=== PATIENT | male | born 1985 | race African-American/Black ===

== ENCOUNTER 2017-08-16 03:09 | Emergency (ER) | payer OTHER ==
[2017-08-16] MEDS ORDERED: Sodium Chloride 0.9% 1,000 ML ONE (03:42)
[2017-08-16] MEDS ORDERED: Lorazepam 2 MG/ML VIAL ONE (03:56)
[2017-08-16 04:08] LABS: Band 2 % (5-11); Eosinophils 9 % (0-10); Hemoglobin 14.5 g/dL (14.0-18.0); Lymphocytes 33 % (21-51); MDiff Complete? YES; Mean Corpuscular HGB CONC 30.2 g/dL (32.0-36.0); Mean Corpuscular Hemoglobin 27.1 pg (27.0-31.0); Mean Corpuscular Volume 89.9 fl (80.0-94.0); Mean Platelet Volume 5.9 fL (7.4-10.4); Monocytes 9 % (0-10); Neutrophil 46 % (42-75); PLT Morphology Comment Appears Adequate; Platelet Count 330 thou/uL (130-400); RBC Distribution Width 15.4 % (11.5-14.5); RBC Morphology Normal; Reactive Lymphocytes 1 % (0-10); Red Blood Cell (RBC) Count 5.33 mill/uL (4.70-6.10); White Blood Cell (WBC) Count 8.7 thou/uL (4.8-10.8)
[2017-08-16 04:09] LABS: Amphetamine Not Detected (NotDetected); Barbiturates Screen Not Detected (NotDetected); Benzodiazepine Screen Not Detected (NotDetected); Bilirubin Negative (Negative); Blood, Urine Negative (Negative); Clarity Clear (Clear); Cocaine Metabolite Screen Not Detected (NotDetected); Glucose, Urine (Dipstick) Negative (Negative); Leukocyte Negative (Negative); Medtox Control Line Valid? VALID (VALID); Methadone Not Detected (NotDetected); Methamphetamine Not Detected (NotDetected); Nitrite Negative (Negative); Opiate Screen Not Detected (NotDetected); Oxycodone Screen Not Detected (NotDetected); Phencyclidine (PCP) Not Detected (NotDetected); Protein, Urine (Dipstick) Trace mg/dL (Neg-Trace); Specific Gravity, Urine 1.025 (1.005-1.030); THC/Cannabinoid Screen Detected (NotDetected); Tricyclic Screen Not Detected (NotDetected); Urobilinogen 0.2 mg/dL (0.2-1.0)
[2017-08-16 04:22] LABS: ALT (SGPT) 47 U/L (8-55); AST (SGOT) 39 U/L (5-34); Acetaminophen Less than 6.0 mcg/mL (10.0-30.0); Albumin 3.8 g/dL (3.5-5.0); Alcohol Less than 10 mg/dL (Less than 10); Alkaline Phosphatase 39 U/L (40-150); Anion Gap 16 mmol/L (10-20); BUN (Urea Nitrogen) 14 mg/dL (8.9-20.6); Bilirubin, Total 0.8 mg/dL (0.2-1.2); Calc. Creatinine Clearance 0 mL/min (70-130); Calcium 8.7 mg/dL (7.8-10.44); Carbon Dioxide 25 mmol/L (22-29); Chloride 100 mmol/L (98-107); Estimated GFR-MDRD 74; Glucose 138 mg/dL (70-105); Potassium 3.3 mmol/L (3.5-5.1); Protein, Total 6.8 g/dL (6.0-8.3); Salicylate Less than 8.0 mg/dL (15.0-30.0); Sodium 138 mmol/L (136-145)
[2017-08-16 04:28] LABS: CKMB 3.6 ng/mL (0-6.6)
[2017-08-16 04:48] LABS: Troponin I 0.028 ng/mL (< 0.028)
== END 2017-08-16 05:12 | disposition home or self-care (01) ==
LOC: NAV ERS 03:09
DX: F41.1 Generalized anxiety disorder (principal); F32.9 Major depressive disorder, single episode, unspecified; T38.7X5A Adverse effect of androgens and anabolic congeners, initial encounter; T48.6X5A Adverse effect of antiasthmatics, initial encounter
CPT/HCPCS: 36415; 80053; 80306; 80307; 81003; 82553; 84443; 84484; 85025; 93005; 96361; 96374; J2060; J7050